=== PATIENT | female | born 1980 ===

== ENCOUNTER 2016-05-08 10:01 | Emergency (ER) | payer OTHER ==
[~2016-05-08] VITALS: Ht 170.2 cm; Wt 137.4 kg
[2016-05-08 10:05] VITALS: BP 113/77
--- NOTE | 2016-05-08 10:45 | ED ANKLE/FOOT INJURY COMPLAINT ---
History of Present Illness General Chief Complaint: Foot or Ankle Injury Stated Complaint: L FOOT PAIN Source: patient Exam Limitations: no limitations Vital Signs & Intake/Output Vital Signs & Intake/Output Vital Signs Date Time Temp Pulse Resp B/P Pulse O2 O2 Flow FiO2 Ox Delivery Rate 05/08 1005 97.6 67 20 113/77 99 Room Air Allergies Coded Allergies: NO KNOWN ALLERGIES (01/07/15) Reconcile Medications Meloxicam (Mobic) 15 MG TABLET 1 TAB PO DAILY PRN pain Triage Note: PT TO ED C/O RIGHT KNEE PAIN AND LEFT FOOT PAIN S/P FALLING ON SUNDAY. STATES HAS BEEN USING ICE WITH NO RELIEF. HAS TAKEN OTC MEDS ALSO WITH NO RELIEF. REFUSING MEDS IN TRIAGE. PAIN IS WORSE TO LEFT FOOT WITH WEIGHT BEARING. Triage Nurses Notes Reviewed? yes Occurred: 2 days Duration: day(s): (2) Timing: no prior history Severity: moderate Severity Numbers: 6 Pain/Injury Location: Right: Other (knee). Left: Foot. Method of Injury: fall Modifying Factors: Improves With: immobilization. Worsens With: movement. : No Patient currently breastfeeds: No HPI: Patient is a 35-year-old female presenting to the emergency department with chief complaint of right knee pain and left foot pain that began 2 days ago after she tripped over a box and fell to the ground. Denies head injury or loss of consciousness. No neck pain or back pain. Pain is achy throbbing over the right knee and left foot. Worse if she tries to wear high heels. She's been taking [id number] Tylenol without relief. Denies nausea or vomiting fevers or chills chest pain or shortness of breath. (MANNY MADDOX) Past History Travel History Traveled to [place] past 21 day No Medical History Any Pertinent Medical History? 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 No (MANNY MADDOX) Review of Systems Review of Systems Constitutional: Reports: no symptoms. Comments Review of systems: See HPI, All other systems negative. Constitutional, no chills fever or weight loss HEENT: No visual changes no sore throat no congestion Cardiovascular: No chest pain ,palpitation Skin, no jaundice no rashes Respiratory: No dyspnea cough sputum or hemoptysis gi: No nausea or vomiting Muscle skeletal: no back pain, no neck pain, Neurologic: No numbness no confusion Psych: No stress anxiety Immunology: No splenectomy or history of AIDS (MANNY MADDOX) Physical Exam Physical Exam General Appearance: well developed/nourished, no apparent distress, alert, awake , comfortable Leg/Knee/Thigh Left: tender to palpation over the left first MCP joint, limited range of motion. Comments: Well-developed well-nourished person in no acute distress HEENT: Pupils equally round and reactive to light and accommodation. Nose is atraumatic. Neck: Normal inspection Back: Nontender Cardiovascular: normal JVP Respiratory: Chest nontender. No respiratory distress.breath sounds clear to auscultation bilaterally Extremity: No edema, no calf tenderness to palpation, normal and equal pedal pulses bilaterally. Limited range of motion of right knee secondary to pain. Pain to palpation over the right patella, both medially and laterally. Negative anterior and posterior drawer test on the right knee. Limited range of motion of left MCP joint and pain and palpation over this area. No erythema. Neuro: Alert oriented x3, motor sensory normal Skin: No appreciable rash on exposed skin, skin is warm and dry. Psych: Mood and affect is normal, memory and judgment is normal. (MANNY MADDOX) Progress Differential Diagnosis: sprain, contusion Plan of Care: Orders Procedure Date/time Status XRY-KNEE COMPLETE RIGHT 05/08 1044 Active XRY-FOOT COMPLETE, LEFT 05/08 1044 Active Diagnostic Imaging: Viewed by Me: Radiology Read. Discussed w/RAD: Radiology Read. Radiology Impression: no acute abnormality, no fracture, no dislocation (MANNY MADDOX) Departure Departure Time of Disposition: 1311 Disposition: HOME OR SELF CARE Condition: Stable Clinical Impression Primary Impression: Foot contusion Qualifiers: Encounter type: initial encounter Laterality: left Qualified Code: S90.32XA - Contusion of left foot, initial encounter Secondary Impressions: Knee pain Qualifiers: Laterality: right Chronicity: acute Qualified Code: M25.561 - Pain in right knee Referrals: PATIENT HAS NO PRIMARY CARE DR (PCP/Family) Referred to [facility] as new patient No Additional Instructions: Follow-up with your primary care physician, call to make appt. Rest and elevate her leg as much as possible. Return for worsening symptoms or concerns. Take anti-inflammatory as prescribed. Departure Forms: Customer Survey General Discharge Information Prescriptions: Current Visit Scripts Meloxicam (Mobic) 1 TAB PO DAILY PRN pain #20 TAB (MANNY MADDOX) PA/BOXING PROMOTER Co-Sign Statement Statement: ED Attending supervision documentation- [] I saw and evaluated the patient. I have also reviewed all the pertinent lab results and diagnostic results. I agree with the findings and the plan of care as documented in the PA's/BOXING PROMOTER's documentation. [X] I have reviewed the ED Record and agree with the PA's/BOXING PROMOTER's documentation. [] Additions or exceptions (if any) to the PAs/BOXING PROMOTER's note and plan are summarized below: [] (KIRK WILKINS DO
--- NOTE | 2016-05-08 13:03 | RADIOLOGY REPORT ---
EXAMINATION: XR FOOT, LEFT CLINICAL INFORMATION: Pain after fall. Evaluate for fracture. COMPARISON: None. TECHNIQUE: Left foot, 3 views FINDINGS: Bones have normal density and alignment throughout the foot. The Chopart, Lisfranc joints and metatarsophalangeal joints are intact. There is a small plantar calcaneal enthesophyte. There is a small, 1-2 mm cyst within the lateral aspect of the 5th metatarsal head. No suspicious bone lesions. There is a bipartite configuration of the medial sesamoid of the great toe. No acute fractures are seen. IMPRESSION: No acute findings within the left foot.
--- NOTE | 2016-05-08 13:11 | RADIOLOGY REPORT ---
EXAMINATION: XR KNEE, RIGHT CLINICAL INFORMATION: Anterior knee pain. COMPARISON: None TECHNIQUE: 4 views FINDINGS: Marginal osteophytes in the medial and lateral compartments. Joint spaces are maintained. No focal fracture seen. No dislocation. Slightly rotated lateral projection limiting evaluation, without large effusion identified. IMPRESSION: Mild medial and lateral compartment degeneration. No radiographic evidence of discrete acute fracture.
[2016-05-08] MEDS ORDERED: MOBIC15 M1 PO (13:15)
== END 2016-05-08 13:18 ==
LOC: EDBD 10:01 → ERH 10:01
DX: S90.32XA Contusion of left foot, initial encounter (principal); M25.561 Pain in right knee; W18.09XA Striking against other object with subsequent fall, initial encounter
CPT/HCPCS: 73562-RT; 73630-LT

== ENCOUNTER 2016-10-28 10:45 | Emergency (ER) | payer OTHER ==
[~2016-10-28] VITALS: Ht 167.6 cm; Wt 137.4 kg
[~2016-10-28 10:45] MED LIST: MOBIC15 M1 PO
--- NOTE | 2016-10-28 10:57 | ED UPPER/LOWER EXTREMITY COMPL ---
History of Present Illness General Chief Complaint: Lower Extremity Problems Stated Complaint: LEFT LEG SWOLLEN/PAINFUL Source: patient Exam Limitations: no limitations Vital Signs & Intake/Output Vital Signs & Intake/Output Vital Signs Date Time Temp Pulse Resp B/P B/P Pulse O2 O2 Flow FiO2 Mean Ox Delivery Rate 10/28 1319 96.7 61 15 128/61 97 Room Air Room Air 10/28 1049 97.8 64 18 130/79 98 Room Air Allergies Coded Allergies: NO KNOWN ALLERGIES (01/07/15) Reconcile Medications Meloxicam (Mobic) 15 MG TABLET 1 TAB PO DAILY PRN pain Triage Note: 36 Y/O FEMALE C/O L LOWER EXTREMITY SWELLING X 1 WEEK; REPORTS SWELLING AND PAIN FROM KNEE DOWN. DENIES RECENT PERIODS OF IMMOBILITY/LONG TRAVEL ETC. SWELLING NOTED AROUND ANKLE AND IN CALF. Triage Nurses Notes Reviewed? yes Onset: Abrupt Duration: week(s): (1), constant, continues in ED, getting worse Timing: single episode today Severity: mild, moderate Severity Numbers: 7 Pain/Injury Location: Left: Leg, Ankle. No Modifying Factors: none Associated Symptoms: swelling LMP (ages 10-50): unknown : No Patient currently breastfeeds: No HPI: 36-year-old female with no sign of any past medical history presents complaining of pain and swelling in her left lower extremity for the past week. Pain is located in the left ankle and left calf and is worse with any type of movement. She denies any trauma. She is not taking any medication for the pain. Rates pain as a 7 out of 10 but does not radiate. She denies any recent trauma, recent surgery, any recent long mobility, no control, no history of blood clots. Additionally there is no fevers, no chest pain, shortness of breath, no hemoptysis. (SELENE GAFFNEY PA-C) Past History Travel History Traveled to [place] past 21 day No Medical History Any Pertinent Medical History? 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 No (SELENE GAFFNEY PA-C) Review of Systems Review of Systems Constitutional: Reports: no symptoms. EENTM: Reports: no symptoms. Respiratory: Reports: no symptoms. Cardiovascular: Reports: see HPI, edema (left lower). Gastrointestinal/Abdominal: Reports: no symptoms. Genitourinary: Reports: no symptoms. Musculoskeletal: Reports: see HPI, joint pain (left ankle), joint swelling (left ankle), muscle pain (left calf). Skin: Reports: no symptoms. Neurological/Psychological: Reports: no symptoms. Hematologic/Endocrine: Reports: no symptoms. Immunological: Reports: no symptoms. All Other Systems: Reviewed and Negative (YEIMY BUSH-C,SELENE) Physical Exam Physical Exam General Appearance: well developed/nourished, no apparent distress, alert, awake , comfortable, obese Head: atraumatic, normal appearance Eyes: Bilateral: normal appearance, PERRL, EOMI. Ears, Nose, Throat: normal pharynx, normal ENT inspection, hearing grossly normal Neck: normal inspection, supple, full range of motion Cardiovascular/Respiratory: normal breath sounds, normal peripheral pulses, regular rate/rhythm, no respiratory distress Peripheral Pulses: 2+ tibialis posterior (R), 2+ tibialis posterior (L), 2+ dorsalis pedis (R), 2+ dorsalis pedis (L) Back: normal inspection, normal range of motion, no vertebral tenderness Leg Left: normal range of motion, swelling, tenderness, soft tissue tenderness, there is nonpitting edema located in the left lower extremity. There is pain with palpation of the left calf and left medial ankle. Full range of motion of the left knee left ankle and left foot is intact.neurovascular supply is intact. Leg Right: normal range of motion, normal inspection Hip Left: normal range of motion, normal inspection Hip Right: normal range of motion, normal inspection Knee Left: normal range of motion, normal inspection Knee Right: normal range of motion, normal inspection Foot Left: normal range of motion, pain, soft tissue tenderness, swelling Foot Right: normal inspection, normal range of motion Lower Extremity Reflexes: 2+: knee (R), knee (L). Neurologic/Tendon: normal sensation, normal motor functions, normal tendon functions, responds to pain, no evidence tendon injury, no pulse deficit Skin: intact, normal color, warm/dry Lymphatic: no anterior cervical kathia (BLACK PA-C,SELENE) Progress Differential Diagnosis: cellulitis, CHF, contusion, dislocation, DVT, fracture, septic arthritis, sprain, tendon injury Plan of Care: Orders Procedure Date/time Status URINALYSIS 10/28 1126 Complete TSH REFLEX 10/28 1126 Complete MAGNESIUM 10/28 1126 Complete COMPREHENSIVE METABOLIC PANEL 10/28 1126 Complete CBC WITHOUT DIFFERENTIAL 10/28 1125 Complete Laboratory Tests 10/28/16 1220: Urinalysis LIGHT H, Urine Color YEL, Urine Clarity HAZY H, Urine pH 6.0, Ur Specific [place] >= 1.030, Urine Protein TRACE H, Urine Ketones 15 H, Urine Nitrite NEG, Urine Bilirubin NEG@ICTO, Urine Urobilinogen 1.0, Ur Leukocyte Esterase NEG, Ur Microscopic SEDIMENT EXAMINED, Urine RBC RARE, Urine WBC 1-3 H , Ur Epithelial Cells MOD H, Urine Bacteria MOD H, Granular Casts RARE H, Urine Mucus MANY H, Urine Hemoglobin NEG, Urine Glucose NEG 10/28/16 1200: Anion Gap 9, Estimated GFR > 60, BUN/Creatinine Ratio 18.6, Glucose 77, Calcium 9.3, Magnesium 2.0, Total Bilirubin 0.6, AST 20, ALT 30, Alkaline Phosphatase 56 , Total Protein 6.7, Albumin 3.9, Globulin 2.8, Albumin/Globulin Ratio 1.4, TSH &T3 &Free T4 Intrp 1.190, CBC w Diff NO MAN DIFF REQ, RBC 4.17 L, MCV 84.3, MCH 27.8, RDW 14.6 H, MPV 8.8, Gran % 60.4, Lymphocytes % 31.2, Monocytes % 6.4, Eosinophils % 1.6, Basophils % 0.4, Absolute Granulocytes 3.3, Absolute Lymphocytes 1.7, Absolute Monocytes 0.3, Absolute Eosinophils 0.1, Absolute Basophils 0, PUBS MCHC 32.9 L Patient will have an ultrasound to rule out DVT. Also basic blood work. Etiology likely is a musculoskeletal issue. Blood work is within normal limits other than minor anemia with hemoglobin of 11.6. Ultrasound is negative for DVT. Exam points more towards a muscular skeletal etiology. Patient was given an Kahlil wrap and instructed to keep her leg elevated avoid excessive walking and weightbearing. She will follow up with her primary care doctor this coming week to review results and reassess symptoms. Ibuprofen will be given for pain. Reviewed all results with patient and she agrees with the plan. Patient is nontoxic appearing at discharge. (YEIMY ABREU,SELENE) Comments: PATIENT: TY ARRIOLA PRESENT AGE: 36 PATIENT ACCOUNT NO: [id number] : 80 LOCATION: [facility] ORDERING PHYSICIAN: SELENE GAFFNEY PA-C SERVICE DATE: 10/28/16 EXAM TYPE: US - US-DUPLEX VENOUS EXTREM UNI EXAMINATION: US TRIPLEX LOWER EXTREMITY, LEFT CLINICAL INFORMATION: Left lower extremity pain, swelling. Suspected venous thromboembolism, DVT. COMPARISON: None TECHNIQUE: Color-flow triplex imaging with spectral analysis and compression Doppler were performed on the lower extremity. FINDINGS: Respiratory variation, normal compression and augmented flow are noted throughout the left lower extremity. The visualized common femoral vein, superficial femoral vein, profunda femoral vein, popliteal vein and midcalf peroneal and posterior tibial venous segments show no evidence of deep venous thrombosis. There is no Benito's cyst. IMPRESSION: Normal triplex scan without evidence of deep venous thrombosis involving the left lower extremity. DICTATED BY: JERRY VALDES MD DATE/TIME DICTATED:10/28/161147 COMMERCIAL LEASING AGENT:LUCINDA DATE/TIME TRANSCRIBED:10/28/161147 CONFIDENTIAL, DO NOT COPY WITHOUT APPROPRIATE AUTHORIZATION. <Electronically signed in Other Vendor System> SIGNED BY: JERRY VALDES MD 10/28/16 1157 (SELENE GAFFNEY PA-C) Departure Departure Disposition: HOME OR SELF CARE Condition: Stable Clinical Impression Primary Impression: Leg edema, left Referrals: PATIENT HAS NO PRIMARY CARE DR (PCP/Family) Additional Instructions: Rest, avoid excessive weightbearing and walking. Wear Kahlil wrap or compression stockings. Keep the leg elevated as much as possible. Use ibuprofen 800 mg every 8 hours as needed for pain. Follow up appointment with your primary care doctor this coming week. Return to the emergency department with any concerns. Please go over all results of today's visit with your primary care doctor. Contact your primary care doctor to let them know you were here in the emergency room. There may be nonspecific findings which may not be related to your visit today here in the emergency room but may require further evaluation and chronic monitoring by your primary care doctor. If you had a laceration today the chance of foreign body always remains. You should follow-up with your primary care doctor for recheck in 3-5 days for a wound check. If you had an x-ray done there is a chance that a fracture could have been missed on initial read and you should follow-up with your primary care doctor for repeat x-rays if symptoms persist. If your blood pressure was elevated here in the emergency room please have rechecked by her primary care doctor within the next 48 hours by your primary care doctor. If you were prescribed a narcotic here in the emergency room or any type of controlled substances you're not allowed to drive while taking this medication or operate any type of heavy machinery. Narcotics can make you feel lightheaded dizziness nausea and can cause constipation. You may need to sampler pickup a stool softener. Thank you for choosing [facility] emergency room. Please return to the emergency room immediately if you have any other concerns worsening of symptoms. Departure Forms: Customer Survey General Discharge Information (YEIMY ABREU,SELENE) PA/IT ADMIN Co-Sign Statement Statement: ED Attending supervision documentation- [] I saw and evaluated the patient. I have also reviewed all the pertinent lab results and diagnostic results. I agree with the findings and the plan of care as documented in the PA's/IT ADMIN's documentation. [X] I have reviewed the ED Record and agree with the PA's/IT ADMIN's documentation. [] Additions or exceptions (if any) to the PAs/IT ADMIN's note and plan are summarized below: [] (DEBBIE AU,ANNMARIE)
--- NOTE | 2016-10-28 11:56 | ULTRASOUND REPORT ---
EXAMINATION: US TRIPLEX LOWER EXTREMITY, LEFT CLINICAL INFORMATION: Left lower extremity pain, swelling. Suspected venous thromboembolism, DVT. COMPARISON: None TECHNIQUE: Color-flow triplex imaging with spectral analysis and compression Doppler were performed on the lower extremity. FINDINGS: Respiratory variation, normal compression and augmented flow are noted throughout the left lower extremity. The visualized common femoral vein, superficial femoral vein, profunda femoral vein, popliteal vein and midcalf peroneal and posterior tibial venous segments show no evidence of deep venous thrombosis. There is no Benito's cyst. IMPRESSION: Normal triplex scan without evidence of deep venous thrombosis involving the left lower extremity.
[2016-10-28 12:09] LABS: ABSOLUTE BASOPHIL COUNT 0 /CUMM (0.0-0.2); ABSOLUTE EOSINOPHIL COUNT 0.1 /CUMM (0.0-0.7); ABSOLUTE GRANULOCYTE CT 3.3 /CUMM (1.4-6.5); ABSOLUTE LYMPH COUNT 1.7 /CUMM (1.2-3.4); BASOPHIL % 0.4 % (0.0-2.0); WHITE BLOOD CELL COUNT 5.4 /CUMM (4.8-10.8)
[2016-10-28 12:15] LABS: ABSOLUTE MONOCYTE COUNT 0.3 /CUMM (0.10-0.60); EOSINOPHIL % 1.6 % (0-5); GRANULOCYTE % 60.4 % (42.2-75.2); HEMATOCRIT 35.1 % (37-47); MEAN CORPUSCULAR HGB 27.8 PG (27.0-31.0); MEAN CORPUSCULAR HGB CONC 32.9 G/DL (33.0-37.0); MEAN CORPUSCULAR VOLUME 84.3 FL (81.0-99.0); MEAN PLATELET VOLUME 8.8 FL (7.4-10.4); PLATELET COUNT 273 /CUMM (130-400); RBC DISTRIBUTION WIDTH 14.6 % (11.5-14.5); RED BLOOD CELL CT 4.17 /CUMM (4.20-5.40)
[2016-10-28 13:19] VITALS: BP 128/61
== END 2016-10-28 13:42 ==
LOC: ERH 10:45
PROVIDERS: Physician Assistant Medical
DX: R60.0 Localized edema (principal)
CPT/HCPCS: 81001